=== PATIENT | female | born 1995 | race Caucasian/White ===

== ENCOUNTER 2017-03-28 16:49 | Emergency (ER) | payer BC ==
[~2017-03-28] VITALS: Ht 157.5 cm; Wt 49.9 kg
--- NOTE | 2017-03-28 17:37 | Emergency Room Report ---
History of Present Illness General Chief Complaint: Sore Throat Present Illness HPI 21 YO Female presents to the ED c/o : sore throat, tonsillar swelling, and nasal congestion x 2 days pain is 6/10 in severity, intermittent cough, body aches, rhinorrhea. Reports subjective chills denies fevers denies ill contacts or recent travel. He denies neck pain or stiffness. patient reports exacerbation upon swallowing. Denies CP, Palpitations, LOC, AMS, dizziness, Changes in Vision, Sensation, paresthesias, or a sudden severe headache. Allergies: Coded Allergies: No Known Allergies (Unverified , 03/28/17) Patient History Past Medical History: see triage record Past Surgical History: none Pertinent Family History: none Last Menstrual Period: 03/27/17 Immunizations: UTD Reviewed Nursing Documentation: PMH: Agreed, PSxH: Agreed Review of Systems All Other Systems: negative except mentioned in HPI Physical Exam Vital Signs Date Time Temp Pulse Resp B/P (MAP) Pulse Ox O2 Delivery O2 Flow Rate FiO2 03/28/17 16:56 98.2 81 17 107/67 98 Room Air Sp02 EP Interpretation: reviewed, normal General Appearance: no apparent distress, alert, GCS 15, non-toxic Head: normocephalic, atraumatic Eyes: bilateral eye normal inspection, bilateral eye PERRL ENT: hearing grossly normal, normal pharynx, no angioedema, normal voice, TMs + canals normal, uvula midline, moist mucus membranes, nasal congestion, pharyngeal erythema Neck: full range of motion, no meningismus Respiratory: chest non-tender, lungs clear, normal breath sounds, speaking full sentences Cardiovascular #1: regular rate, rhythm Musculoskeletal: back normal, gait/station normal, normal range of motion, non- tender Neurologic: alert, oriented x3, responsive, motor strength/tone normal, sensory intact, speech normal Skin: normal color, no rash, warm/dry, well hydrated Lymphatic: no adenopathy Medical Decision Making PA Attestation Dr. botello is my supervising Physician whom patient management has been discussed with. Diagnostic Impression: Primary Impression: Post-nasal drainage Additional Impression: Upper respiratory infection, viral ER Course Pt. presents to the ED c/o : sore throat, tonsillar swelling, and nasal congestion x 2 days pain is 6/10 in severity, intermittent cough, body aches, rhinorrhea. Ddx considered but are not limited to: pharyngitis, strep, GUINEA PIG BREEDER, ludwigs angina, URI Vital signs: are WNL, pt. is afebrile H&PE are most consistent with: pharyngitis . Secondary to postnasal drainage and nasal congestion. patient does not meet center criteria ORDERS: None required at this time as the diagnosis is clinical ED INTERVENTIONS: none required at this time. DISCHARGE: At this time pt. is stable for d/c to home. Will provide printed patient care instructions, and any necessary prescriptions. Care plan and follow up instructions have been discussed with the patient prior to discharge. Last Vital Signs Date Time Temp Pulse Resp B/P (MAP) Pulse Ox O2 Delivery O2 Flow Rate FiO2 03/28/17 16:56 98.2 81 17 107/67 98 Room Air Disposition: HOME, SELF-CARE Condition: Stable Scripts Acetaminophen* (TYLENOL EXTRA STRENGTH*) 500 Mg Tablet 500 MG ORAL Q6H, #20 TAB 0 Refills Prov: Tequila Sorto 03/28/17 Cetirizine Hcl/Pseudoephedrine (ZYRTEC-D TABLET) 1 Each Tab.er.12h 1 EACH ORAL Q12HR for 7 Days, #14 TAB Prov: Tequila Sorto 03/28/17 Lidocaine HCl 2% Viscous (Lidocaine HCl 2% Viscous) 100 Ml Solution 10 ML ORAL QID, #200 ML Prov: Tequila Sorto 03/28/17 Departure Forms: Return to Work Return to Work Date: Mar 30, 2017 Work Restrictions: None Return to Full Activity: Mar 30, 2017 Patient Instructions: Sore Throat Additional Instructions: Take medications as directed. Follow up with a Primary Care Provider in 3-5 days, even if your symptoms have resolved. --Please review list of primary care clinics, if you do not already have a primary care provider Return sooner to ED if new symptoms occur, or current symptoms become worse. - Please note that this Emergency Department Report was dictated using [employer] help handyman technology software, occasionally this can lead to erroneous entry secondary to interpretation by the dictation equipment. Tequila Sorto Mar 28, 2017 17:37
[2017-03-28] MEDS ORDERED: LIDOCAINE VISC100 ML ORAL (17:38)
[2017-03-28] MEDS ORDERED: TYLENOL EXTRA500 MG ORAL (17:38)
[2017-03-28] MEDS ORDERED: ZYRTEC-D TABLE1 EACH ORAL (17:38)
[2017-03-28 17:49] VITALS: BP 111/78
== END 2017-03-28 17:50 | disposition home or self-care (01) ==
LOC: EMR 17:15
DX: R09.82 Postnasal drip (principal); J06.9 Acute upper respiratory infection, unspecified; B34.9 Viral infection, unspecified
CPT/HCPCS: 99283

== ENCOUNTER 2017-03-31 22:06 | Emergency (ER) | payer BC ==
[~2017-03-31] VITALS: Ht 154.9 cm; Wt 51.3 kg
[~2017-03-31 22:06] MED LIST: LIDOCAINE VISC100 ML ORAL; TYLENOL EXTRA500 MG ORAL; ZYRTEC-D TABLE1 EACH ORAL
[2017-03-31 22:27] VITALS: BP 106/71
[2017-03-31] MEDS ORDERED: AZITHROMYCIN250 MG ORAL (22:35)
--- NOTE | 2017-03-31 22:36 | Emergency Room Report ---
History of Present Illness General Chief Complaint: Earache Source: Patient Present Illness HPI Is a 21-year-old female with no past medical history. She presents with chief complaint of nasal congestion and left ear pain. Onset for the last 4 days. She was here 2 days ago for sore throat congestion. Prescribe medicine is not helping. No fever or chills. No nausea no vomiting. Worse with blow her nose. Allergies: Coded Allergies: No Known Allergies (Unverified , 03/28/17) Patient History Past Medical History: see triage record, old chart reviewed Past Surgical History: none Pertinent Family History: none Social History: Denies: smoking Last Menstrual Period: currently on period Now: No Immunizations: other Reviewed Nursing Documentation: PMH: Agreed, PSxH: Agreed Nursing Documentation-PMH Past Medical History: No Stated History Review of Systems Eye: Denies: eye pain, blurred vision ENT: Reports: ear pain, nose congestion, Denies: throat swelling Respiratory: Denies: cough, shortness of breath Cardiovascular: Denies: chest pain, palpitations Gastrointestinal: Denies: abdominal pain, diarrhea, nausea, vomiting Musculoskeletal: Denies: back pain, joint pain Skin: Denies: rash Neurological: Denies: headache, numbness Endocrine: Denies: increased thirst, increased urine Hematologic/Lymphatic: Denies: easy bruising All Other Systems: negative except mentioned in HPI Physical Exam Vital Signs Date Time Temp Pulse Resp B/P (MAP) Pulse Ox O2 Delivery O2 Flow Rate FiO2 03/31/17 22:21 97.9 77 12 106/71 96 Room Air vitals normal Sp02 EP Interpretation: reviewed, normal General Appearance: well appearing, no apparent distress, alert Head: normocephalic, atraumatic Eyes: bilateral eye PERRL, bilateral eye EOMI ENT: hearing grossly normal, normal pharynx, other - Left TM with air-fluid levels And is bulging. Neck: full range of motion, supple, no meningismus Respiratory: chest non-tender, lungs clear, normal breath sounds Cardiovascular #1: regular rate, rhythm, no murmur Gastrointestinal: normal bowel sounds, non tender, no mass, no organomegaly, no bruit, non-distended Musculoskeletal: back normal, gait/station normal, normal range of motion Psychiatric: mood/affect normal Skin: warm/dry Medical Decision Making Diagnostic Impression: Primary Impression: Left otitis media with effusion Additional Impression: Viral upper respiratory infection ER Course Patient with a viral illness couple by otitis media with effusion. No evidence of perforation. No evidence of meningitis, sepsis, mastoiditis or other serious bacterial infection. We'll discharge home. Last Vital Signs Date Time Temp Pulse Resp B/P (MAP) Pulse Ox O2 Delivery O2 Flow Rate FiO2 03/31/17 22:27 97.9 12 106/71 96 Room Air 03/31/17 22:21 77 Status: unchanged Disposition: HOME, SELF-CARE Condition: Stable Scripts Azithromycin* (ZITHROMAX*) 250 Mg Tablet 250 MG ORAL DAILY, #6 TAB 0 Refills Take two tablets by mouth today, then take one tablet by mouth daily for four days Prov: PRISCILA THOMPSON M.D. 03/31/17 Patient Instructions: Otitis Media, Adult, [id number] Additional Instructions: Followup with your Dr. in 7 days. Return if symptom worsen. PRISCILA THOMPSON M.D. Mar 31, 2017 22:36
[2017-03-31 22:48] VITALS: BP 106/71
== END 2017-03-31 22:55 | disposition home or self-care (01) ==
LOC: EMR 22:20
DX: H66.92 Otitis media, unspecified, left ear (principal); J06.9 Acute upper respiratory infection, unspecified; B34.9 Viral infection, unspecified
CPT/HCPCS: 99283